=== PATIENT | female | born 1940 | race Caucasian/White ===

== ENCOUNTER 2017-02-20 13:33 | Emergency (ER) | payer OTHER ==
[~2017-02-20] VITALS: Ht 162.6 cm; Wt 73.6 kg
[2017-02-20 15:56] VITALS: BP 105/83
== END 2017-02-20 15:58 | disposition home or self-care (01) ==
LOC: EME 13:33
DX: S16.1XXA Strain of muscle, fascia and tendon at neck level, initial encounter (principal); R06.02 Shortness of breath; V43.51XA Car driver injured in collision with sport utility vehicle in traffic accident, initial encounter; Z96.651 Presence of right artificial knee joint; Z88.8 Allergy status to other drugs, medicaments and biological substances
CPT/HCPCS: 71020; 99281; 99284